=== PATIENT | female | born 1985 | race Caucasian/White ===

== ENCOUNTER 2016-08-11 07:15 | Day surgery (SDC) | payer OTHER ==
[~2016-08-11 07:15] MED LIST: Buffered Lidocaine 0.9% SYRIN* 5 ML/SYR SYRINGE INTRADERM ONE; Buffered Lidocaine 0.9% SYRIN* 5 ML/SYR SYRINGE ONE
[2016-08-11] MEDS ORDERED: fentaNYL* 50 MCG/ML 2 ML VIAL (100 MCG VIAL) ONE (08:28)
[2016-08-11] MEDS ORDERED: Midazolam* 1 MG/ML 2 ML VIAL (2 MG) ONE (08:29)
[2016-08-11] MEDS ORDERED: Dexamethasone IV* 4 MG/ML 1 ML (4 MG) ONE (09:00)
[2016-08-11] MEDS ORDERED: Propofol* 10 MG/ML 20 ML BTL IV PUSH ONE (09:00)
[2016-08-11] MEDS ORDERED: Ketorolac INJ* 30 MG/ML 1 ML VIAL ONE (09:00)
[2016-08-11] MEDS ORDERED: Famotidine IV* 10 MG/ML 2 ML (20 mg) ONE (09:00)
[2016-08-11] MEDS ORDERED: Lidocaine 2% PF * 5 ML VIAL ONE (09:00)
[2016-08-11] MEDS ORDERED: fentaNYL* 50 MCG/ML 2 ML VIAL (100 MCG VIAL) IV PRN (09:26)
[2016-08-11] MEDS ORDERED: Acetaminophen TAB* 325 MG PO PRN (09:26)
[2016-08-11] MEDS ORDERED: DiMENhydriNATE IV* 50 MG/ML VIAL IV PUSH PRN (09:26)
[2016-08-11] MEDS ORDERED: Ondansetron INJ* 2 MG/ML VIAL IV PRN (09:26)
[2016-08-11] MEDS ORDERED: HYDROcodone/ACETAMIN 5-325 MG* 1 TAB PO PRN (09:26)
--- NOTE | 2016-08-11 10:11 | OP ---
DATE OF OPERATION: 08/11/16 [facility] DATE OF : 83 SURGEON: Nabeel Farfan MD TESTER/LIFT TRUCKER: None. ANESTHESIA: Spinal with sedation. PRE-OP DIAGNOSIS: Missed . POST-OP DIAGNOSIS: Missed . OPERATIVE PROCEDURE: Dilation and curettage. FINDINGS: Exam under anesthesia. The vagina and vulva appeared normal. Uterus was anteverted and 8 weeks' size. There were no masses palpated. DESCRIPTION OF PROCEDURE: Patient identified and procedure as D and E. Patient was taken to the operating room, prepped and draped in the usual fashion in dorsal lithotomy position under spinal sedation. A single-tooth tenaculum was placed in the anterior lip of the cervix. Cervix was dilated up to a #29 Persaud dilator. The #8 suction curette was inserted, and suction curettage performed with moderate amounts of tissue. The sharp curette was inserted and sharp curettage performed until gritty sensation was felt throughout the circumference. The polyp forceps were inserted and small amounts of tissue were obtained in that way. Suction was reinserted and no further tissue was obtained. There was a gritty sensation felt throughout the circumference. All instruments removed from vagina. Good hemostasis was verified, and the patient returned to the recovery room in stable condition. [id number]/[facility] #: [id number] MTDD
[2016-08-11 12:20] VITALS: BP 115/70
== END 2016-08-11 12:21 | disposition home or self-care (01) ==
LOC: OR 07:15
PROVIDERS: ATTEND Obstetrics & Gynecology
DX: O02.1 Missed abortion (principal)
CPT/HCPCS: 88305; J1100; J1885; J2250; J2704; J3010

== ENCOUNTER 2017-08-01 23:21 | Inpatient (IN) | payer OTHER ==
[2017-08-02] MEDS ORDERED: Penicillin G Potassium IV* 5,000,000 UNITS in NS 0.9% 100 ML* 100 ML IVPB ONE (00:18)
[2017-08-02 00:54] LABS: Hematocrit 36 % (35-47); Hemoglobin 12.2 g/dl (12.0-16.0); Mean Corpuscular HGB Conc 34 g/dl (31-36); Mean Corpuscular Hemoglobin 32 pg (27-31); Mean Corpuscular Volume 93 fL (80-97); Mean Platelet Volume 7.5 um3 (7.4-10.4); Platelet Count 303 10^3/ul (150-450); Red Blood Count 3.88 10^6/ul (4.00-5.40); Red Cell Distribution Width 13 % (10.5-15); White Blood Count 10.9 10^3/ul (3.5-10.8)
--- NOTE | 2017-08-02 01:06 | HP ---
General Information - General Information Maternal Age: 31 Grav: 2 Para: 0 SAB: 0 IEA: 0 Estimated Due Date: 08/04/17 Determined By: LMP Gestational Age in Weeks and Days: 39 Weeks and 4 Days Maternal Blood Type and Rh: B Positive - Results this Serology/RPR Result: Non-Reactive Rubella Result: Immune HBsAg Result: Negative HIV Result: Negative GBS Culture Result: Positive Past Medical History Past Medical History Comment: environmental allergies Past Surgical History Comment: D&C 07/2016 for spont ab Pertinent Family History: See Records - Antepartal Records Antepartal Records: Reviewed, Uncomplicated Review of Systems Constitutional: Uncomfortable CV Complaint: No Respiratory: Shortness of Breath: No Genitourinary: Leaking Fluid Musculoskeletal: Contractions Neurological: No Headache Movement: Normal - Comments nausea/vomiting diarrhea Exam Allergies/Adverse Reactions: Allergies SEASONAL Allergy (Uncoded 08/11/16 07:27) Eyes Itchy/Swollen/Red/Watery AND CONGESTION Lab Values - Entire Visit: Laboratory Tests 08/01/17 08/02/17 23:46 00:39 WBC 10.9 H RBC 3.88 L Hgb 12.2 Hct 36 MCV 93 MCH 32 H MCHC 34 RDW 13 Plt Count 303 MPV 7.5 Vag Amniotic Fld Detect Positive - Measurements Height: 5 ft 4 in Weight: 173 lb Weight in lbs: 173.958540 Body Mass Index (BMI): 29.7 Pre- Weight: 135 lb Weight Gained This : 38 lbs and 0 ozs - Exam Breast: - - soft, no masses Extremities: No Edema Heart: Normal Rhythm/Heart Sounds HEENT: No Significant Findings Lungs: Clear Bilaterally Reflexes: DTR 2+ Thyroid: No Thyromegaly - Ultrasound/Biophysical Profile Ultrasound Status: Not Done Targeted Exam Findings Estimated Weight: 8lbs Cervical Exam: 5cm Effacement: 90% Station: -1 Presenting Part: Vertex Membrane Status: Leaking Amniotic Fluid Evaluation: Positive ROM Plus EFM Findings - External Monitor Findings Baseline Heart Rate: 135 External Monitor Findings: Accelerations Present, No Pattern of Variable or Late Decelerations, Variability Moderate External Monitor Findings Comment: category 1 Contractions: Moderate, 45-90 Seconds Contraction Frequency: every 3-4 minutes Assessment/Plan - Obstetrical Risk Factors Obstetrical Risk Factors: GBS Positive - Plan Plan: Active Labor, Antibiotic Prophylaxis Plan Comment: IUP at 39 w 5 d, SROM at 2230, onset of contractions 2300 Plan: will admit anticipate vaginal delivery - Date/Time of Admission Date of Admission: 08/02/17 Time of Admission: 00:30
[2017-08-02 01:28] LABS: ABS Basophils 0 10^3/ul (0-0.2); ABS Eosinophils 0.1 10^3/ul (0-0.6); ABS Lymphocytes 2.4 10^3/ul (1.0-4.8); ABS Monocytes 0.9 10^3/ul (0-0.8); ABS Neutrophils 7.6 10^3/ul (1.5-7.7); ABS Nucleated RBC 0 10^3/ul
[2017-08-02 01:31] LABS: Monocytes % 10 % (0-7)
[2017-08-02] MEDS ORDERED: OBEPIDURAL* 250 ML EPIDURAL ONE (02:17)
[2017-08-02] MEDS ORDERED: Phenylephrine IV* 40 MCG/ML 10 ML SYRINGE IV PUSH PRN ×2 (02:55)
[2017-08-02] MEDS ORDERED: Sodium Citrate/Citric Acid* 15 ML UDC PO PRN (02:55)
[2017-08-02] MEDS ORDERED: Famotidine TAB* 20 MG PO PRN (02:55)
[2017-08-02] MEDS ORDERED: EPHEDrine (Pressors)* 50 MG/ML VIAL IV PUSH PRN ×2 (02:55)
[2017-08-02] MEDS ORDERED: OBEPIDURAL* 250 ML EPIDURAL SCH (03:00)
[2017-08-02] MEDS ORDERED: Penicillin G Potassium IV* 2,500,000 UNITS in NS 0.9% 100 ML* 100 ML IVPB SCH (04:30)
[2017-08-02] MEDS ORDERED: Dibucaine 1% 28.35 GM TUBE PR PRN (04:40)
[2017-08-02] MEDS ORDERED: Glycerin ADULT SUPP PR PRN (04:40)
[2017-08-02] MEDS ORDERED: Acetaminophen TAB* 325 MG PO PRN (04:40)
--- NOTE | 2017-08-02 04:53 | PROCNOTE ---
[facility] OB: Delivery Note - Nursery Level of Nursery: Regular/Bedside - Perineum Perineal Injury: Vaginal Laceration Perineal Injury Comment: small bilateral vaginal sulcus lacerations Perineal Repair: By Delivering Practioner - Events Delivery Events of Note: Partial Course of Antibiotics - Additional Delivery Notes Additional Delivery Notes: Requested and received epidural at 0245, initially comfortable, started feeling pressure, urge to push at approx 0320, checked by RN, was fully dilated. Pushing begun at 0326 with vtx at + 3 station. Pushed 44 minutes. SVB LFC, OA, at 0410 over small sulcus lacerations, labial abrasions. Infant pink with stimulation, suctioning. Terminal mec. Placenta Abida, intact. Fundus firm with minimal massage. Vaginal laceration repaired with 3-0 and 4-0 ccg under 1% lidocaine local. Labial abrasions not repaired. EBL 150cc. Baby with Apgars 9/ 9.
[2017-08-02] MEDS: Docusate CAP* 100 MG PO SCH ×3 (07:23→21:20)
[2017-08-02] MEDS: Ibuprofen TAB* 600 MG PO PRN ×2 (07:23→21:20)
[2017-08-02] MEDS: Witch Hazel PAD* JAR TOPICAL PRN (08:00)
--- NOTE | 2017-08-02 19:45 | PTEDU ---
Patient Name: KARUNA CRAWFORD YVETTEKARUNA selected video: Never Ever Shake a Baby to view on 08/02/2017 at 7:44:[address] [facility] [id number]
--- NOTE | 2017-08-02 19:54 | PTEDU ---
Patient Name: KARUNA CRAWFORD YVETTEKARUNA Cobos selected video: Follow Me Mum: [facility] [place] to Successful to [facility]02[facility]2017 at 7[facility]53[id number]
[2017-08-03 07:18] LABS: Hematocrit 34 % (35-47); Hemoglobin 11.6 g/dl (12.0-16.0); Mean Corpuscular HGB Conc 34 g/dl (31-36); Mean Corpuscular Hemoglobin 32 pg (27-31); Mean Corpuscular Volume 93 fL (80-97); Mean Platelet Volume 7.2 um3 (7.4-10.4); Platelet Count 292 10^3/ul (150-450); Red Blood Count 3.63 10^6/ul (4.00-5.40); Red Cell Distribution Width 14 % (10.5-15)
[2017-08-03] MEDS: Docusate CAP* 100 MG PO SCH ×3 (08:40→20:21)
[2017-08-03] MEDS ORDERED: Ferrous Gluconate TAB* 324 MG TAB PO SCH (09:00)
[2017-08-03] MEDS: Ibuprofen TAB* 600 MG PO PRN ×2 (11:52→20:21)
[2017-08-03] MEDS: Witch Hazel PAD* JAR TOPICAL PRN (14:28)
[2017-08-04 08:19] VITALS: BP 111/55
[2017-08-04] MEDS: Docusate CAP* 100 MG PO SCH (08:55)
[2017-08-04] MEDS: Ibuprofen TAB* 600 MG PO PRN (08:55)
== END 2017-08-04 16:05 | disposition home or self-care (01) | DRG 775 ==
LOC: MCHOBOUT 23:21 → MCHOB 08-02 00:20
PROVIDERS: ADMIT Midwife; ATTEND Midwife
PROC: 0UQG7ZZ Repair Vagina, Via Natural or Artificial Opening (ICD-10-PCS; principal; 2017-08-02)
PROC: 10E0XZZ Delivery of Products of Conception, External Approach (ICD-10-PCS; 2017-08-02)
PROC: 4A1HX4Z Monitoring of Products of Conception, Cardiac Electrical Activity, External Approach (ICD-10-PCS; 2017-08-02)
DX: O70.0 First degree perineal laceration during delivery (principal); Z37.0 Single live birth; Z3A.39 39 weeks gestation of pregnancy; O99.824 Streptococcus B carrier state complicating childbirth; O77.0 Labor and delivery complicated by meconium in amniotic fluid
CPT/HCPCS: 36415; 84112; 85025; 85027; 86850; 86900; 86901; A9270-GY; J2540

== ENCOUNTER 2020-10-25 14:01 | Inpatient (IN) ==
[2020-10-25 15:19] LABS: Urine Appearance Cloudy; Urine Bilirubin Negative (Negative); Urine Blood 1+ (Negative); Urine Color Yellow; Urine Glucose Negative (Negative); Urine Ketones Negative (Negative); Urine Nitrite Negative (Negative); Urine Protein Negative (Negative); Urine Specific Gravity 1.006 (1.002-1.030); Urine Urobilinogen Negative (Negative)
[2020-10-25 15:22] LABS: Urine Bacteria 1+ (Absent); Urine Red Blood Cell Trace(0-2/hpf) (Absent); Urine Squamous Epithelial Cell Present (Absent); Urine White Blood Cell Trace(0-5/hpf) (Absent)
[2020-10-25 15:31] LABS: Urine Benzodiazepine Screen None Detected (None Detect); Urine Cannabinoids Screen None Detected (None Detect); Urine Opiates Screen None Detected (None Detect)
[2020-10-25] MEDS ORDERED: Witch Hazel PAD JAR TOPICAL PRN (17:00)
[2020-10-25] MEDS ORDERED: Oxytocin 10 UNITS/ML 1 ML VIAL IM ONE (17:00)
[2020-10-25] MEDS ORDERED: Dibucaine 1% OINT 28.35 GM TUBE PR PRN (17:00)
[2020-10-26 07:29] LABS: Hematocrit 35 % (35-47); Mean Corpuscular HGB Conc 34 g/dL (31-36); Mean Corpuscular Hemoglobin 31 pg (27-31); Mean Corpuscular Volume 90 fL (80-97); Mean Platelet Volume 7.4 fL (7.4-10.4); Platelet Count 303 10^3/uL (150-450); Red Blood Count 3.89 10^6 /uL (3.70-4.87); Red Cell Distribution Width 14 % (10-15); White Blood Count 13.7 10^3/uL (3.5-10.8)
[2020-10-26 07:34] LABS: ABS Basophils 0.1 10^3/ul (0-0.2); ABS Eosinophils 0.1 10^3/ul (0-0.6); ABS Lymphocytes 2.5 10^3/ul (1.0-4.8); ABS Monocytes 0.9 10^3/ul (0-0.8); ABS Neutrophils 10.2 10^3/ul (1.5-7.7); Eosinophil % 0.6 %; Lymphocyte % 17.9 %
[2020-10-27 07:53] VITALS: BP 111/66
== END 2020-10-27 12:21 | disposition home or self-care (01) | DRG 807 ==
LOC: MCHOBOUT 14:01 → MCHOB 14:39
PROVIDERS: ADMIT Midwife; ATTEND Midwife